=== PATIENT | female | born 1980 ===

== ENCOUNTER 2018-03-16 13:20 | Outpatient (CLI) | payer SELFPAY | END 2018-03-16 13:21 | disposition short-term general hospital (02) | LOC: EMS 13:20 | PROVIDERS: ATTEND Surgery | DX: R56.9 Unspecified convulsions (principal); R41.82 Altered mental status, unspecified; R46.89 Other symptoms and signs involving appearance and behavior | CPT/HCPCS: A0170; A0425; A0427; A0999 ==